=== PATIENT | female | born 1960 | race Caucasian/White ===

== ENCOUNTER 2017-02-27 08:21 | Emergency (ER) | payer BC, OTHER ==
[~2017-02-27 08:21] MED LIST: BUTA1CAP29 PO; MECL25TA3 PO
--- NOTE | 2017-02-27 08:54 | RAD ---
3 views right wrist 02/27/2017 Clinical indication: Fall with right wrist pain. Comparison: None. Findings: There is a comminuted impacted fracture of the distal radial metaphysis with intra-articular extension. There is no significant displacement. Normal alignment of the carpal bones. Mild first CMC and STT osteoarthritis. Moderate soft tissue swelling about the wrist. Impression: Comminuted intra-articular fracture of the distal radius.
--- NOTE | 2017-02-27 08:55 | RAD ---
2 views right forearm 02/27/2017 Clinical indication: Fall with right arm pain. Comparison: Same day right wrist. Findings: Redemonstration of a comminuted, impacted intra-articular fracture of the distal radial metaphysis. There is a tiny calcific density adjacent to the ulnar styloid. Impression: 1. Redemonstration of distal radial fracture. 2. Tiny, subcentimeter calcific density adjacent to the ulnar styloid may represent age-indeterminate fracture or sequela of old injury.
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
[2017-02-27] MEDS ORDERED: HYDROcodone/APAP 7.5/325MG 1 TAB TABLET PO ONE (09:00)
[2017-02-27] MEDS ORDERED: ONDANSETRON ODT 4 MG TAB.RAPDIS PO ONE (09:00)
[2017-02-27] MEDS ORDERED: HYDR-971 PO (09:21)
[2017-02-27 09:50] VITALS: BP 121/70
== END 2017-02-27 10:06 | disposition home or self-care (01) ==
LOC: ER 08:21
DX: S52.501A Unspecified fracture of the lower end of right radius, initial encounter for closed fracture (principal); Z87.891 Personal history of nicotine dependence; W00.0XXA Fall on same level due to ice and snow, initial encounter; Y93.89 Activity, other specified; Y99.8 Other external cause status; Y92.89 Other specified places as the place of occurrence of the external cause
CPT/HCPCS: 29125; 73090; 73110; 99284; Q0162

== ENCOUNTER 2020-03-24 12:46 | Emergency (ER) | payer BC ==
[~2020-03-24] VITALS: Ht 157.5 cm; Wt 65.0 kg
[~2020-03-24 12:46] MED LIST changes: +HYDR-3165 PO; +MECL-75 PO; -MECL25TA3 PO
[2020-03-24 13:11] VITALS: BP 131/100
--- NOTE | 2020-03-24 14:25 | PHYS DOC ---
Past History Past Medical History: Diabetes, High Cholesterol (ERICA BRITO APRN) Past Surgical History: Other (ERICA BRITO APRN) Alcohol Use: None Drug Use: None (ERICA BRITO APRN) Adult General Chief Complaint Chief Complaint: DIZZY/LIGHT HEADED HPI HPI Patient is a 59 year old female who presents with near syncope today. Patient reports she had been at work near a compost bin that was filled with decaying food, when she got a deep breath of the scent and felt dizziness afterwards. States she felt that way for approximately 5 minutes, where she had to hold onto a counter to keep from falling, and after removing herself from that area, she started to feel better. States she has never had this happen before and she has been doing that job for last couple years. Denies any recent fever, denies any nausea, vomiting, diarrhea. States normal appetite. States no recent illness. States right now she feels good, denies any complaints. (ERICA BRITO APRN) Review of Systems Review of Systems Constitutional: Denies fever or chills [] Eyes: Denies change in visual acuity, redness, or eye pain [] HENT: Denies nasal congestion or sore throat [] Respiratory: Denies cough or shortness of breath [] Cardiovascular: No additional information not addressed in HPI [] GI: Denies abdominal pain, nausea, vomiting, bloody stools or diarrhea [] : Denies dysuria or hematuria [] Musculoskeletal: Denies back pain or joint pain [] Integument: Denies rash or skin lesions [] Neurologic: Denies headache, focal weakness or sensory changes [] states she had lightheadedness earlier, however no longer is having dizziness Endocrine: Denies polyuria or polydipsia [] All other systems were reviewed and found to be within normal limits, except as documented in this note. (ERICA BRTIO APRN) Allergies Allergies Allergies Coded Allergies Type Severity Reaction Last Updated Verified No Known Drug Allergies 03/25/15 No (ERICA BRITO APRN) Physical Exam Physical Exam Constitutional: Well developed, well nourished, no acute distress, non-toxic appearance. [] HENT: Normocephalic, atraumatic, bilateral external ears normal, oropharynx moist, no oral exudates, nose normal. [] Eyes: PERRLA, EOMI, conjunctiva normal, no discharge. [] No nystagmus Neck: Normal range of motion, no tenderness, supple, no stridor. [] Cardiovascular:Heart rate regular rhythm, no murmur [] Lungs & Thorax: Bilateral breath sounds clear to auscultation [] Abdomen: Bowel sounds normal, soft, no tenderness, no masses, no pulsatile masses. [] Skin: Warm, dry, no erythema, no rash. [] Back: No tenderness, no CVA tenderness. [] Extremities: No tenderness, no cyanosis, no clubbing, ROM intact, no edema. [] Neurologic: Alert and oriented X 3, normal motor function, normal sensory function, no focal deficits noted. [] Full range of motion of all extremities, no weakness noted. No ataxia Psychologic: Affect normal, judgement normal, mood normal. [] (ERICA BRITO APRN) Current Patient Data Vital Signs Vital Signs Date Time Temp Pulse Resp B/P (MAP) Pulse Ox O2 Delivery O2 Flow Rate FiO2 03/24/20 13:11 98.3 95 16 131/100 (110) 100 Room Air (ERICA BRITO APRN) EKG EKG [] no STEMI per Dr Guthrie. sinus rhythm @ 90. no axis deviation. normal intervals. (ERICA BRITO APRN) Radiology/Procedures Radiology/Procedures PATIENT: DEVIN NOONAN LACCOUNT: [id number]#: [id number] : 1960 LOCATION: ER AGE: 59 SEX: F EXAM STATUS: REG ER ORD. PHYSICIAN: ERICA BRITO APRN REASON: near syncope PROCEDURE: CHEST AP ONLY XR CHEST 1V History: Reason: near syncope / Spl. Instructions: / History: Comparison: None. Findings: Low lung volumes. Patchy bibasilar opacities. No pleural effusion. No pneumothorax. Normal heart size. Chronic deformity of the right proximal humerus. Impression: 1. Low lung volumes with patchy right basilar opacity, may represent atelectasis or developing infiltrate. Recommend follow-up. Electronically signed by: Ba Godoy DO (03/24/2020 2:47 PM) [id number] DICTATED AND SIGNED BY: BA GODOY DO DATE: 03/24/20 1446 CC: ERICA BRITO APRN; WILLIAM BULLOCK MD ~MTH0 0 [] (ERICA BRITO APRN) Heart Score Risk Factors: Risk Factors: DM, Current or recent (<one month) smoker, HTN, HLP, family history of CAD, obesity. Risk Scores: Risk Factors: DM, Current or recent (<one month) smoker, HTN, HLP, family history of CAD, obesity. (ERICA BRITO APRN) Course & Med Decision Making Course & Med Decision Making Pertinent Labs and Imaging studies reviewed. (See chart for details) []Patient reports she feels good. states no further episodes of dizziness. states no nausea or vomiting. Will plan to discharge patient home, with plan for follow up as needed. Patient states she wants to go home, and she thinks everything was because of the bad smell today. Will plan to discharge. (ERICA BRITO APRN) Dragon Disclaimer Dragon Disclaimer This electronic medical record was generated, in whole or in part, using a voice recognition dictation system. (ERICA BRITO APRN) Departure Departure: Impression: Primary Impression: Inhalation of noxious fumes Additional Impression: Malaise Disposition: 01 DC HOME SELF CARE/HOMELESS Condition: STABLE Referrals: WILLIAM BULLOCK MD (PCP) Patient Instructions: Near-Syncope Additional Instructions: As we discussed, make sure you are avoiding the noxious smells from the compost area when possible. Stay hydrated. Make sure you are eating well. Follow up with your primary care provider in the next week to see if you are feeling better. Attending Co-Sign Attending Co-Sign I was personally available for consult in the emergency department. I have reviewed the chart and agree with the documentation as recorded by the LUIS FELIPE including the assessment, treatment plan and disposition. (AVA GUTHRIE DO) Problem Qualifiers Primary Impression: Inhalation of noxious fumes Encounter type: initial encounter Injury intent: accidental or unintentional Qualified Codes: T59.91XA - Toxic effect of unspecified gases, fumes and vapors, accidental (unintentional), initial encounter ERICA BRITO APRN Mar 24, 2020 14:25 AVA GUTHRIE DO Mar 24, 2020 17:09
--- NOTE | 2020-03-24 14:50 | RAD ---
XR CHEST 1V History: Reason: near syncope / Spl. Instructions: / History: Comparison: None. Findings: Low lung volumes. Patchy bibasilar opacities. No pleural effusion. No pneumothorax. Normal heart size . Chronic deformity of the right proximal humerus. Impression: 1. Low lung volumes with patchy right basilar opacity, may represent atelectasis or developing infil trate. Recommend follow-up. Electronically signed by: Ba oGdoy DO (03/24/2020 2:47 PM) [id number]
[2020-03-24 14:51] LABS: BASO # 0.1 x10^3/uL (0.0-0.2); BASO % 1 % (0-3); EOS # 0.2 x10^3/uL (0.0-0.7); EOS % 3 % (0-3); HEMATOCRIT 44.2 % (36.0-47.0); HEMOGLOBIN 14.4 g/dL (12.0-15.5); LYMPH # 2.7 x10^3/uL (1.0-4.8); LYMPH % 32 % (24-48); MEAN CORPUSCULAR HEMOGLOBIN 28 pg (25-35); MEAN CORPUSCULAR HGB CONC 33 g/dL (31-37); MEAN CORPUSCULAR VOLUME 87 fL (79-100); MONO # 0.8 x10^3/uL (0.0-1.1); MONO % 9 % (0-9); NEUT # 4.6 x10^3uL (1.8-7.7); NEUT % 55 % (31-73); PLATELET COUNT 257 x10^3/uL (140-400); RED BLOOD COUNT 5.09 x10^6/uL (3.50-5.40); RED CELL DISTRIBUTION WIDTH 13.9 % (11.5-14.5); WHITE BLOOD COUNT 8.4 x10^3/uL (4.0-11.0)
[2020-03-24 15:17] LABS: CREATININE 0.8 mg/dL (0.6-1.0); GFR 72.9; POTASSIUM 4.2 mmol/L (3.5-5.1)
[2020-03-24 15:17] LABS: CLARITY,URINE CLEAR; COLOR,URINE YELLOW
[2020-03-24 15:18] LABS: BACTERIA,URINE FEW /HPF (0-FEW); BILIRUBIN,URINE NEG (NEG); GLUCOSE,URINE NEG (NEG); NITRITE,URINE NEG (NEG); SQUAMOUS EPITHELIAL CELL,UR MANY /LPF; UROBILINOGEN,URINE 0.2 mg/dL (0.2 mg/dL)
[2020-03-24 15:23] LABS: ALBUMIN 3.8 g/dL (3.4-5.0); ALBUMIN/GLOBULIN RATIO 0.8 (1.0-1.7); TOTAL BILIRUBIN 0.5 mg/dL (0.2-1.0); TOTAL PROTEIN 8.8 g/dL (6.4-8.2)
--- NOTE | 2020-03-24 16:31 | EKG ---
[address] [address] Test Date: 2020-03-24 Test Time: 16:24:07 Pat Name: DEVIN NOONAN Department: Room: Gender: F Designated Broker: RONEY : 1960 Requested By: ERICA BRITO Order Number: [id number] Reading MD: Measurements Intervals [place] Rate: 90 P: 37 [place]: 134 QRS: -24 QRSD: 86 T: 41 QT: 358 QTc: 442 Interpretive Statements SINUS RHYTHM LEFTWARD AXIS R-S TRANSITION ZONE IN V LEADS DISPLACED TO THE LEFT OTHERWISE NORMAL ECG RI6.02 No previous ECG available for comparison
== END 2020-03-24 16:38 | disposition home or self-care (01) ==
LOC: ER 12:46
DX: T59.91XA Toxic effect of unspecified gases, fumes and vapors, accidental (unintentional), initial encounter (principal); R53.81 Other malaise; E11.9 Type 2 diabetes mellitus without complications; E78.00 Pure hypercholesterolemia, unspecified; Y92.89 Other specified places as the place of occurrence of the external cause
CPT/HCPCS: 36415; 71045; 80053; 81001; 84484; 85025; 87086; 93005; 99285